=== PATIENT | female | born 1995 | race Caucasian/White ===

== ENCOUNTER 2022-06-13 20:29 | Emergency (ER) | payer BC ==
[~2022-06-13] VITALS: Ht 160 cm; Wt 57.2 kg
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
--- NOTE | 2022-06-13 20:44 | NUR ---
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
--- NOTE | 2022-06-13 20:57 | NUR ---
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
--- NOTE | 2022-06-13 21:06 | NUR ---
SISTER GAGE PATEL
--- NOTE | 2022-06-13 21:46 | NUR ---
COLE WRAP APPLIED TO RFA
--- NOTE | 2022-06-13 21:50 | NUR ---
Patient discharged to home in stable condition. Written and verbal after care instructions given. Patient verbalizes understanding of instruction.
[2022-06-13 22:09] VITALS: BP 111/84
== END 2022-06-13 22:10 | disposition home or self-care (01) ==
LOC: ER 20:36
DX: S50.11XA Contusion of right forearm, initial encounter (principal); S80.12XA Contusion of left lower leg, initial encounter; V89.2XXA Person injured in unspecified motor-vehicle accident, traffic, initial encounter; Y93.89 Activity, other specified; Y92.89 Other specified places as the place of occurrence of the external cause; Y99.8 Other external cause status
CPT/HCPCS: 73090-TC; 73590-TC